=== PATIENT | male | born 1960 | race Caucasian/White ===

== ENCOUNTER 2024-04-10 13:30 | Outpatient (RCR) | payer MEDICARE, SELFPAY ==
[2024-04-03 13:06] VITALS: BP 189/80; PULSE 71; RESP 18; TEMP 36.5; BMI 46.0
--- NOTE | 2024-04-03 18:32 | HP.PCM_ITS ---
History of Present Illness Date of Service: 04/03/24 Chief Complaint: R matthews ulceration History of Wound: Mr. Alvin Gomez is a 63 y/o male who presents today for evaluation and management of R matthews ulcerations. He has had these ulcerations for a while. He reports that these ulcerations will heal and then re-open and this has been ongoing for a few years. They typically start as fluid-filled blisters and then evolve into these wounds. He does have bilateral lower extremity edema which he says has also been ongoing for years. He does not wear compression because he is not able to get the stockings on. His mobility is limited by hip osteoarthritis and his weight. His is type 2 diabetic and reports he is supposed to be on insulin but is not. He says he has 7 medications at home (not sure which ones) that he did pay for, including 2 inhalers; but he has other medications that he has not picked up due to cost including insulin. He has Medicare A & B but no prescription drug coverage. He says he has papers at home to fill out to either apply for Medicaid or other assistance for this, his PCP office has been helping with this. He does have a glucometer but he does not use it because he is having difficulty operating it. He also has hypertension but is not sure if he has BP medications, he thinks those may have been ones that were too expensive. His initial BP today was 189/80 this did improve to 157/80 on recheck. PFSH Home Medications ?Medication ?Instructions ?Recorded ?Last Taken ?Type albuterol sulfate 90 mcg/actuation 1 puff inhalation Q4H PRN PRN 04/03/24 Unknown History aerosol inhaler wheezing atorvastatin 80 mg tablet 80 mg PO DAILY 04/03/24 Unknown History fluticasone furoate 100 inhalation DAILY 04/03/24 Unknown History mcg-vilanterol 25 mcg/dose inhalation powder hydralazine 25 mg tablet 25 mg PO TID 04/03/24 Unknown History losartan 25 mg tablet 25 mg PO DAILY 04/03/24 Unknown History pantoprazole 40 mg tablet,delayed 40 mg PO DAILY 04/03/24 Unknown History release topiramate 50 mg tablet 50 mg PO BID 04/03/24 Unknown History Allergy/AdvReac Type Severity Reaction Status Date / Time No Known Allergies Allergy Verified 04/03/24 13:23 Vital Signs Vital Signs Vital Signs: 04/03/24 13:06 Temperature 97.7 F L Temperature Source Temporal Pulse Rate 71 Respiratory Rate 18 Blood Pressure 189/80 H Blood Pressure Mean 116 Blood Pressure Source Monitor Blood Pressure Position Sitting Blood Pressure Location Left Arm Oxygen Delivery Method Room Air Weight Weight: 330 lb Body Mass Index (BMI) 46.0 Physical Exam Const alert, oriented x3 and no apparent distress General Appearance: cooperative and comfortable HEENT normocephalic, hearing grossly normal bilaterally and external ears normal Eyes EOMs intact bilaterally General Eye: normal appearance of both eyes Neck General: normal visual inspection and trachea midline Resp normal respiratory effort Effort and Inspection: able to speak in complete sentences; Negative for labored, stridor or audible wheezes Cardio Rate: regular rate Rhythm: regular rhythm Extremity Extremity Narrative: Significant BLE edema: (04/03) R calf 52.6 cm, R ankle 29.7 cm (04/03) L calf 48.7 cm, L ankle 27.4 cm Skin Wounds: wounds noted Wound Narrative: R matthews ulcerations with fat layer exposed, moderate slough, pink well-bleeding base. No focal edema, erythema, warmth, excessive drainage, foul odor. Neuro oriented x3, CN's II-XII intact bilaterally, moves all extremities and no focal motor deficits Speech: speech normal Psych mental status grossly normal Appearance: grossly normal Attitude: calm and engaged Activity / Motor Behavior: appropriate eye contact Speech: normal speech Mood & Affect: euthymic mood Debridement Note Debridement Note Wound debrided: R matthews inferior Laterality: Right Type of Debridement: Excisional debridement Depth: Down to and including healthy tissue and in the subcutaneous layer Percentage of wound debrided: 100 Instrument Used: 3mm curette Tissue Removed: slough, devitalized tissue Severity: Fat Layer Exposed Amount of bleeding with debridement: Mild Bleeding Controlled with: Pressure Patient tolerated procedure: Patient tolerated procedure well Post-Debridement Measurements and Additional Note: Post-Debridement Measurements/Treatment - Nurse 1 - General Ulcer Assessment Start: 04/03/24 13:06 Freq: Status: Active Protocol: DALTON Activity Type Activity Date Activity User E-sign Co-sign Detail Recorded Client Recorded Date Recorded By Document 04/03/24 13:06 [facility] [email or web address] 04/03/24 13:21 [facility] 04/03/24 13:06 - Today's Visit Information Type of service Initial Visit Arrival Mode Ambulatory,Cane Transfer Assistance None Accompanied by son Patient Identification Verified (Name & Yes ) Patient Requires Transmission-Based No Precautions Height and Weight Height 5 ft 11 in Weight 330 lb Weight in Pounds 330.0 lbs Weight Measurement Method Estimated by Patient Body Mass Index (BMI) 46.0 BMI Classification Obese BSA - Jamil 2.61 Vital Signs Temperature (97.8 F-99.1 F) 97.7 F L Temperature Source Temporal Pulse Rate (60-100) 71 Pulse Location Monitor Respiratory Rate (12-18) 18 Respiratory rate source Observation Oxygen Delivery Method Room Air Blood Pressure (90/60-120/80) 189/80 H Blood Pressure Mean 116 Source Monitor Position Sitting Blood Pressure Location Left Arm History Since Last Visit- (Skip if this is Patient's initial visit) Left Footwear Regular Shoe Right Footwear Regular Shoe Pain Scale: 0-10 Numeric Is Patient Pain Free? Yes Lower Extremity Assessment/ Foot Assessment/ Toe Nail Assessment Right -Posterior Tibial Doppler Multiphasic -Dorsalis Pedis Doppler Multiphasic -Extremity Color Hyperpigmented, Hemosiderin -Hair Growth on Legs Yes -Hair Growth on Toes No -Temperature of Extremity Warm -Thick Yes -Discolored Yes -Improper Length & Hygeine Yes Left -Posterior Tibial Doppler Multiphasic -Dorsalis Pedis Doppler Multiphasic -Extremity Color Hyperpigmented, Hemosiderin -Hair Growth on Legs Yes -Hair Growth on Toes No -Temperature of Extremity Warm -Thick Yes -Discolored Yes -Improper Length & Hygeine Yes Communication Assessment 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 Able to Read Yes Able to Write Yes Communication Tools None Right Hearing Abillity Normal Left Hearing Abillity Normal Visual Assistive Devices Glasses Teaching Assessment Preferences Verbal,Written, Audio/Visual, Demonstration Barriers to Learning None Readiness To Learn Good Willingness to Engage in Self Management Med Activies Readiness to Engage in Self Management Med Activities Anxiety Level Calm Cooperation Cooperative Perception Coherent Interest in Health Problem Asks Questions Education Importance Acknowledges Need Does Patient Smoke tobacco or other No substances Is Patient Diabetic Yes Functional Assessment Recent Decline in Ability to Perform Denies Any Declines 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 Cultural/Episcopal Needs that may affect No Treatment Plan Teaching: Wound Center *Welcome to the Wound Center -Person Taught Patient,Family -Teaching Method Discussion -Response to teaching Verbalize understanding WC - Nurse 1 - General Ulcer Measurement Start: 04/03/24 13:06 Freq: Status: Active Protocol: Activity Type Activity Date Activity User E-sign Co-sign Detail Recorded Client Recorded Date Recorded By Document 04/03/24 13:06 [facility] [email or web address] 04/03/24 13:21 [facility] 04/03/24 13:06 Wound Center Nurse 1 #2- R MATTHEWS -Combined with other wound No -Current Size (cm) - Length 1.3 -Current Size (cm) - Width 1.3 -Current Size (cm) - Depth 0.2 -Total Square Cm 1.69 -Date of Last Picture (Recall this 04/03/24 field) -Photo Taken Yes -Epithelialization None Present -Tunneling No -Undermining/Tunneling No -Circular Undermining No -Exudate Amt Medium -Exudate Type Serosanguineous -Wound Margin Distinct, Outline Attached -Granulation Amt Large (67-100%) -Granulation Quality Red -Slough/Fibrin Yes -Necrosis Amt Small (1-33%) -Necrotic Tissue Type Adherent Slough -Texture (Sandy-wound Skin Appearance) Assessed, Scarring -Moisture (Sandy-wound Skin Appearance) Assessed -Color (Sandy-wound Skin Appearance) Assessed -Temperature (Sandy-wound Skin No Abnormality Appearance) (Pt Warm) -Tenderness on Palpation (Sandy-wound No Skin Appearance) -Ulcer Cleansing Rinsed/ Irrigated with Saline -Foul Odor after Cleansing No -Anesthetic Used 4% Lidocaine Solution #1- R MATTHEWS SUPERIOR -Combined with other wound No -Current Size (cm) - Length 0.4 -Current Size (cm) - Width 0.5 -Current Size (cm) - Depth 0.1 -Total Square Cm 0.20 -Date of Last Picture (Recall this 04/03/24 field) -Photo Taken Yes -Epithelialization None Present -Tunneling No -Undermining/Tunneling No -Circular Undermining No -Exudate Amt Medium -Exudate Type Serosanguineous -Wound Margin Distinct, Outline Attached -Granulation Amt Large (67-100%) -Granulation Quality Red -Slough/Fibrin Yes -Necrosis Amt Small (1-33%) -Necrotic Tissue Type Adherent Slough -Texture (Sandy-wound Skin Appearance) Assessed -Moisture (Sandy-wound Skin Appearance) Assessed -Color (Sandy-wound Skin Appearance) Assessed -Temperature (Sandy-wound Skin No Abnormality Appearance) (Pt Warm) -Tenderness on Palpation (Sandy-wound Yes Skin Appearance) -Ulcer Cleansing Soap and Water -Foul Odor after Cleansing No -Anesthetic Used 4% Lidocaine Solution Lower Limb Edema Present Yes Right Calf (cm) 52.6 Right Ankle (cm) 29.7 Left Calf (cm) 48.7 Left Ankle (cm) 27.4 WC - Nurse 2 - General Ulcer CM Notes Start: 04/03/24 13:06 Freq: Status: Active Protocol: Activity Type Activity Date Activity User E-sign Co-sign Detail Recorded Client Recorded Date Recorded By Document 04/03/24 13:43 [facility] 04/03/24 13:57 GM 04/03/24 13:43 Wound Center Nurse 2 #2- R MATTHEWS -Time 13:43 -Correct Patient Yes -Correct Side, Site, Position Yes -Correct Procedure Yes -Procedure Performed Yes -Type of Procedure Debridement -Clinical Debridement Subcutaneous -Tissue Removed Subcutaneous -Post Debridement (cm) - Length 1.6 -Post Debridement (cm) - Width 1.4 -Post Debridement (cm) - Depth 0.4 -Total Square (Post) (cm) 2.24 -Area of Debridement (cm) - Length 1.6 -Area of Debridement (cm) - Width 1.4 -Total Square (Area) (cm) 2.24 -Tunneling No -Undermining/Tunneling No -Circular Undermining No -Wound/Ulcer Outcome Not Healed -Ulcer Cleansing Rinsed/ Irrigated with Saline -Foul Odor after Cleansing No -Bioengineered Tissue No -Bleeding Controlled with Pressure -Treatment Response Procedure Tolerated Well -Debridement - Subq, 1st 20sq cm Yes #1- R MATTHEWS SUPERIOR -Time 13:44 -Correct Patient Yes -Correct Side, Site, Position Yes -Correct Procedure Yes -Procedure Performed Yes -Type of Procedure Debridement -Clinical Debridement Subcutaneous -Tissue Removed Subcutaneous -Post Debridement (cm) - Length 0.3 -Post Debridement (cm) - Width 0.5 -Post Debridement (cm) - Depth 0.1 -Total Square (Post) (cm) 0.15 -Area of Debridement (cm) - Length 0.3 -Area of Debridement (cm) - Width 0.5 -Total Square (Area) (cm) 0.15 -Tunneling No -Undermining/Tunneling No -Circular Undermining No -Wound/Ulcer Outcome Not Healed -Ulcer Cleansing Rinsed/ Irrigated with Saline -Foul Odor after Cleansing No -Bioengineered Tissue No -Bleeding Controlled with Pressure -Treatment Response Procedure Tolerated Well -Debridement - Subq, 1st 20sq cm No Pain Scale: 0-10 Numeric Is Patient Pain Free? Yes - Nurse 3 - General Ulcer D/C NN Start: 04/03/24 13:06 Freq: Status: Active Protocol: Activity Type Activity Date Activity User E-sign Co-sign Detail Recorded Client Recorded Date Recorded By Document 04/03/24 14:02 KW f 04/03/24 14:04 KW Edit Result 04/03/24 14:02 KW (1) f 04/03/24 14:05 KW (1) #1- R MATTHEWS SUPERIOR - Primary Dressing Applied => Optilok 8x12 - Optilok 8x12 => 1 04/03/24 14:02 Wound Care Center Nurse 3 #2- R MATTHEWS -Primary Dressing Applied Silvercel -Primary Dressing Covered/Secured with Dry Gauze -Silvercel 1 #1- R MATTHEWS SUPERIOR -Primary Dressing Applied Optilok 8x12 -Optilok 8x12 1 laura le -Multi-Layered Wrap Application Unna Boot - Bilateral ($) Pain Scale: 0-10 Numeric Is Patient Pain Free? Yes - Visit Discharge Discharge Condition Stable Ambulatory Status Ambulatory,Cane Transportation Private Auto Medication Reconcilliation completed & No provided to patient/care provider Clinical Summary of Care Provided Yes Additional Wound Wound debrided: R matthews superior Laterality: Right Type of Debridement: Excisional debridement Anesthesia Used: 5% Lidocaine Gel Depth: in the subcutaneous layer Percentage of wound debrided: 100 Instrument Used: 3mm curette Tissue Removed: slough, devitalized tissue Severity: Fat Layer Exposed Amount of bleeding with debridement: Mild Bleeding Controlled with: Pressure Patient tolerated procedure: Patient tolerated procedure well Charges/Coding Visit Charges Office Visits / Consults: [id number] OV L3 New 30min Procedures Integumentary [id number]: [id number] Mikayla subq tissue 20 sq cm/< Assessment/Plan Assessment/Plan (1) Ulcer of right matthews with fat layer exposed: CODE(S): L97.812 - Non-pressure chronic ulcer of other part of right lower leg with fat layer exposed PLAN: Skin ulcer of right pretibial region with fat layer exposed (2) Lymphedema: CODE(S): I89.0 - Lymphedema, not elsewhere classified PLAN: Plan For wound care, will apply Aquacel Silver to the wound beds and then apply Unna boots for compression. He was instructed to keep the Unna boots clean and dry. He is instructed to call for a nurse visit for dressing changes if these become soiled. He is also instructed to elevate his legs at all times of rest and participate in daily exercise such as walking and calf pumps as tolerated. We discussed the importance of good glycemic control in wound healing. I advise that he make sure he fills out the paperwork for financial assistance for his medications as access to insulin and other diabetic medications will be very important. I also advised that he make dietary changes to better control his sugars including increasing protein and decreasing carbohydrates/sugar/fatty foods. I ask that he bring his glucometer and supplies with him to his next ap pointment so we can try to help him to use this. I also discussed with him the risks of poorly controlled blood pressure including risk for stroke, heart attack, kidney injury, among others. He is a dvised to call his PCP and advise them of the elevated blood pressures, see if he has blood pressure medications at home and make sure he is taking them. I also asked that he bring all of his medications in with him next week so we can help him sort these out. I advise he get a home BP cuff if possible to monitor his pressure at home. We reviewed red flag signs/symptoms which should take him to the ER including CP, SOB, GLORIA, vision changes, abdominal/flank/back pain, and any other concerning signs/symptoms. He will return to see me in 1 week, sooner as needed.
--- NOTE | 2024-04-04 11:38 | WC ---
PHOTO 04/03/24 SUPERIOR RIGHT SALAMANCA/INFERIOR RIGHT SALAMANCA
--- NOTE | 2024-04-04 11:39 | WC ---
PHOTO 04/03/24 RIGHT SALAMANCA
[2024-04-10 13:35] VITALS: BP 188/76; PULSE 61; RESP 18; TEMP 36.1; BMI 46.0
--- NOTE | 2024-04-10 15:08 | PCM.WC.PN ---
History of Present Illness Date of Service: 04/10/24 Chief Complaint: R matthews ulceration History of Wound: Mr. Alvin Gomez is a 63 y/o male who presents today for evaluation and management of R matthews ulcerations. He has had these ulcerations for a while. He reports that these ulcerations will heal and then re-open and this has been ongoing for a few years. They typically start as fluid-filled blisters and then evolve into these wounds. He does have bilateral lower extremity edema which he says has also been ongoing for years. He does not wear compression because he is not able to get the stockings on. His mobility is limited by hip osteoarthritis and his weight. His is type 2 diabetic and reports he is supposed to be on insulin but is not. He says he has 7 medications at home (not sure which ones) that he did pay for, including 2 inhalers; but he has other medications that he has not picked up due to cost including insulin. He has Medicare A & B but no prescription drug coverage. He says he has papers at home to fill out to either apply for Medicaid or other assistance for this, his PCP office has been helping with this. He does have a glucometer but he does not use it because he is having difficulty operating it. He also has hypertension but is not sure if he has BP medications, he thinks those may have been ones that were too expensive. Subjective Subjective He is hypertensive again today. He is again encouraged to monitor his BP at home, ensure he is takes his BP medication today, and to inform his PCP of elevated BP. He is also advised to proceed to the ER if he develops any CP, SOB, vision changes, GLORIA, other concerning symptoms, or if his BP does not improve to systolic <170 on recheck. He has no complaints today. He states he tolerated the Unna boots well. He did bring his glucometer with him today so that we could see what error message he was getting and try to troubleshoot. Objective Data Objective Data Vital Signs: Vital Signs Temp Pulse Resp BP O2 Del Method 96.9 F L 61 18 188/76 H Room Air 04/10/24 13:35 04/10/24 13:35 04/10/24 13:35 04/10/24 13:35 04/10/24 13:35 Oxygen Delivery Method Room Air Weight: 330 lb Body Mass Index (BMI) 46.0 Charges/Coding Procedures Integumentary 111xxx-113xx: [id number] Mikayla subq tissue 20 sq cm/< Physical Exam Const alert, oriented x3 and no apparent distress General Appearance: cooperative and comfortable HEENT normocephalic, hearing grossly normal bilaterally and external ears normal Eyes EOMs intact bilaterally General Eye: normal appearance of both eyes Neck General: normal visual inspection and trachea midline Resp normal respiratory effort Effort and Inspection: able to speak in complete sentences; Negative for labored, stridor or audible wheezes Cardio Rate: regular rate Rhythm: regular rhythm Extremity Extremity Narrative: Significant BLE edema: (04/03) R calf 52.6 cm, R ankle 29.7 cm --> R calf 51.2 cm, R ankle 28 cm (04/03) L calf 48.7 cm, L ankle 27.4 cm --> L calf 45.5 cm, L ankle 26 cm Skin Wounds: wounds noted Wound Narrative: R superior matthews ulceration is fully epithelialized today. R inferior matthews ulceration with fat layer exposed, moderate slough, pink well-bleeding base, decreased in size this week. No focal edema, erythema, warmth, excessive drainage, foul odor. Neuro oriented x3, CN's II-XII intact bilaterally, moves all extremities and no focal motor deficits Speech: speech normal Psych mental status grossly normal Appearance: grossly normal Attitude: calm and engaged Activity / Motor Behavior: appropriate eye contact Speech: normal speech Mood & Affect: euthymic mood Debridement Note Debridement Note Wound debrided: R matthews inferior Laterality: Right Type of Debridement: Excisional debridement Depth: Down to and including healthy tissue and in the subcutaneous layer Percentage of wound debrided: 100 Instrument Used: 3mm curette Tissue Removed: slough, devitalized tissue Severity: Fat Layer Exposed Amount of bleeding with debridement: Mild Bleeding Controlled with: Pressure Patient tolerated procedure: Patient tolerated procedure well Post-Debridement Measurements and Additional Note: Post-Debridement Measurements/Treatment ALISSON - Nurse 1 - General Ulcer Assessment Start: 04/03/24 13:06 Freq: Status: Active Protocol: DALTON Activity Type Activity Date Activity User E-sign Co-sign Detail Recorded Client Recorded Date Recorded By Document 04/03/24 13:06 [facility] 10.10.25.7 04/03/24 13:21 BMF Document 04/10/24 13:35 KW l 04/10/24 13:50 KW 04/03/24 04/10/24 13:06 13:35 WC - Today's Visit Information Type of service Initial Visit Follow-up Visit (Physician/MISSIONARY COORDINATOR ) Arrival Mode Ambulatory,Cane Ambulatory Transfer Assistance None Accompanied by son SON Patient Identification Verified (Name & Yes Yes ) Patient Requires Transmission-Based No Precautions Height and Weight Height 5 ft 11 in Weight 330 lb Weight in Pounds 330.0 lbs Weight Measurement Method Estimated by Patient Body Mass Index (BMI) 46.0 46.0 BMI Classification Obese Obese BSA - Jamil 2.61 Vital Signs Temperature (97.8 F-99.1 F) 97.7 F L 96.9 F L Temperature Source Temporal Temporal Pulse Rate (60-100) 71 61 Pulse Location Monitor Monitor Respiratory Rate (12-18) 18 18 Respiratory rate source Observation Observation Oxygen Delivery Method Room Air Room Air Blood Pressure (90/60-120/80) 189/80 H 188/76 H Blood Pressure Mean (mm Hg) 116 113 Source Monitor Monitor Position Sitting Sitting Blood Pressure Location Left Arm Left Arm History Since Last Visit- (Skip if this is Patient's initial visit) Have you changed medications since your No last visit? Any new allergies or adverse reactions No Had a fall/change in ADL's that may No increase risk of falls Signs or symptoms of abuse and/or No neglect since last visit Have you been in the hospital since your No last visit? Has dressing in place as prescribed Yes Has compression in place as prescribed Yes Has offloadiing in place as prescribed N/A Experienced any changes in pain level or No management Left Footwear Regular Shoe Regular Shoe Right Footwear Regular Shoe Regular Shoe Pain Scale: 0-10 Numeric Is Patient Pain Free? Yes Yes Lower Extremity Assessment/ Foot Assessment/ Toe Nail Assessment Right -Posterior Tibial Doppler Multiphasic -Dorsalis Pedis Doppler Multiphasic -Extremity Color Hyperpigmented, Hemosiderin -Hair Growth on Legs Yes -Hair Growth on Toes No -Temperature of Extremity Warm -Thick Yes -Discolored Yes -Improper Length & Hygeine Yes Left -Posterior Tibial Doppler Multiphasic -Dorsalis Pedis Doppler Multiphasic -Extremity Color Hyperpigmented, Hemosiderin -Hair Growth on Legs Yes -Hair Growth on Toes No -Temperature of Extremity Warm -Thick Yes -Discolored Yes -Improper Length & Hygeine Yes Communication Assessment Preferred language Monegasque Roll Cutter Required No Able to Read Yes Able to Write Yes Communication Tools None Right Hearing Abillity Normal Left Hearing Abillity Normal Visual Assistive Devices Glasses Teaching Assessment Preferences Verbal,Written, Audio/Visual, Demonstration Barriers to Learning None Readiness To Learn Good Willingness to Engage in Self Management Med Activies Readiness to Engage in Self Management Med Activities Anxiety Level Calm Cooperation Cooperative Perception Coherent Interest in Health Problem Asks Questions Education Importance Acknowledges Need Does Patient Smoke tobacco or other No substances Is Patient Diabetic Yes Functional Assessment Recent Decline in Ability to Perform Denies Any Declines 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 Cultural/Advent Needs that may affect No Treatment Plan Teaching: Wound Center *Welcome to the Wound Center -Person Taught Patient,Family -Teaching Method Discussion -Response to teaching Verbalize understanding WC - Nurse 1 - General Ulcer Measurement Start: 04/03/24 13:06 Freq: Status: Active Protocol: Activity Type Activity Date Activity User E-sign Co-sign Detail Recorded Client Recorded Date Recorded By Document 04/03/24 13:06 [facility] 10.10.25.7 04/03/24 13:21 [facility] Document 04/10/24 13:35 KW l 04/10/24 13:50 KW 04/03/24 04/10/24 13:06 13:35 Wound Center Nurse 1 #2- R MATTHEWS -Combined with other wound No -Current Size (cm) - Length 1.3 1.7 -Current Size (cm) - Width 1.3 1.4 -Current Size (cm) - Depth 0.2 0.2 -Total Square Cm 1.69 2.38 -Date of Last Picture (Recall this 04/03/24 04/10/24 field) -Photo Taken Yes -Epithelialization None Present Small 1-33% -Tunneling No -Undermining/Tunneling No -Circular Undermining No -Exudate Amt Medium Small -Exudate Type Serosanguineous Serosanguineous -Wound Margin Distinct, Distinct, Outline Outline Attached Attached -Granulation Amt Large (67-100%) Large (67-100%) -Granulation Quality Red Red -Slough/Fibrin Yes -Necrosis Amt Small (1-33%) Small (1-33%) -Necrotic Tissue Type Adherent Slough Adherent Slough -Texture (Sandy-wound Skin Appearance) Assessed, Assessed Scarring -Moisture (Sandy-wound Skin Appearance) Assessed Assessed -Color (Sandy-wound Skin Appearance) Assessed Assessed, Erythema -Temperature (Sandy-wound Skin No Abnormality No Abnormality Appearance) (Pt Warm) (Pt Warm) -Tenderness on Palpation (Sandy-wound No No Skin Appearance) -Ulcer Cleansing Rinsed/ Soap and Water Irrigated with Saline -Foul Odor after Cleansing No -Anesthetic Used 4% Lidocaine 5% Lidocaine Solution Gel #1- R MATTHEWS SUPERIOR -Combined with other wound No -Current Size (cm) - Length 0.4 0.1 -Current Size (cm) - Width 0.5 0.1 -Current Size (cm) - Depth 0.1 0.1 -Total Square Cm 0.20 0.01 -Date of Last Picture (Recall this 04/03/24 04/10/24 field) -Photo Taken Yes -Epithelialization None Present Large 67-100% -Tunneling No -Undermining/Tunneling No -Circular Undermining No -Exudate Amt Medium None Present -Exudate Type Serosanguineous -Wound Margin Distinct, Outline Attached -Granulation Amt Large (67-100%) -Granulation Quality Red -Slough/Fibrin Yes -Necrosis Amt Small (1-33%) -Necrotic Tissue Type Adherent Slough -Texture (Sandy-wound Skin Appearance) Assessed Assessed -Moisture (Sandy-wound Skin Appearance) Assessed Assessed -Color (Sandy-wound Skin Appearance) Assessed Assessed -Temperature (Sandy-wound Skin No Abnormality Appearance) (Pt Warm) -Tenderness on Palpation (Sandy-wound Yes No Skin Appearance) -Ulcer Cleansing Soap and Water Soap and Water -Foul Odor after Cleansing No -Anesthetic Used 4% Lidocaine Solution Lower Limb Edema Present Yes Right Calf (cm) 52.6 51.2 Right Ankle (cm) 29.7 28 Left Calf (cm) 48.7 45.5 Left Ankle (cm) 27.4 26 WC - Nurse 2 - General Ulcer CM Notes Start: 04/03/24 13:06 Freq: Status: Active Protocol: Activity Type Activity Date Activity User E-sign Co-sign Detail Recorded Client Recorded Date Recorded By Document 04/03/24 13:43 GM wc 04/03/24 13:57 GM Document 04/10/24 13:59 [facility] 10.10.25.7 04/10/24 14:03 BMF 04/03/24 04/10/24 13:43 13:59 Wound Center Nurse 2 #2- R MATTHEWS -Time 13:43 -Correct Patient Yes -Correct Side, Site, Position Yes -Correct Procedure Yes -Procedure Performed Yes -Type of Procedure Debridement -Clinical Debridement Subcutaneous -Tissue Removed Subcutaneous -Post Debridement (cm) - Length 1.6 0 -Post Debridement (cm) - Width 1.4 0 -Post Debridement (cm) - Depth 0.4 0 -Total Square (Post) (cm) 2.24 0 -Area of Debridement (cm) - Length 1.6 0 -Area of Debridement (cm) - Width 1.4 0 -Total Square (Area) (cm) 2.24 0 -Tunneling No -Undermining/Tunneling No -Circular Undermining No -Wound/Ulcer Outcome Not Healed Healed- Epithelialized -Ulcer Cleansing Rinsed/ Irrigated with Saline -Foul Odor after Cleansing No -Bioengineered Tissue No -Bleeding Controlled with Pressure NA -Treatment Response Procedure Tolerated Well -Debridement - Subq, 1st 20sq cm Yes #1- R MATTHEWS ANTIOCH -Time 13:44 14:01 -Correct Patient Yes Yes -Correct Side, Site, Position Yes Yes -Correct Procedure Yes Yes -Procedure Performed Yes Yes -Type of Procedure Debridement Debridement -Clinical Debridement Subcutaneous Subcutaneous -Tissue Removed Subcutaneous Subcutaneous -Post Debridement (cm) - Length 0.3 1.4 -Post Debridement (cm) - Width 0.5 1.1 -Post Debridement (cm) - Depth 0.1 0.2 -Total Square (Post) (cm) 0.15 1.54 -Area of Debridement (cm) - Length 0.3 1.4 -Area of Debridement (cm) - Width 0.5 1.1 -Total Square (Area) (cm) 0.15 1.54 -Tunneling No No -Undermining/Tunneling No No -Circular Undermining No -Wound/Ulcer Outcome Not Healed Not Healed -Ulcer Cleansing Rinsed/ Rinsed/ Irrigated with Irrigated with Saline Saline -Foul Odor after Cleansing No No -Bioengineered Tissue No No -Bleeding Controlled with Pressure Pressure -Treatment Response Procedure Procedure Tolerated Well Tolerated Well -Debridement - Subq, 1st 20sq cm No Yes Pain Scale: 0-10 Numeric Is Patient Pain Free? Yes Yes WC - Nurse 3 - General Ulcer D/C NN Start: 04/03/24 13:06 Freq: Status: Active Protocol: Activity Type Activity Date Activity User E-sign Co-sign Detail Recorded Client Recorded Date Recorded By Document 04/03/24 14:02 KW f 04/03/24 14:04 KW Edit Result 04/03/24 14:02 KW (1) f 04/03/24 14:05 KW Document 04/10/24 14:16 DL 10.10.25.7 04/10/24 14:18 DL (1) #1- R MATTHEWS SUPERIOR - Primary Dressing Applied => Optilok 8x12 - Optilok 8x12 => 1 04/03/24 04/10/24 14:02 14:16 Wound Care Center Nurse 3 #2- R MATTHEWS -Primary Dressing Applied Silvercel -Primary Dressing Covered/Secured with Dry Gauze -Silvercel 1 #1- R MATTHEWS SUPERIOR -Ulcer Cleansing Rinsed/ Irrigated with Saline -Foul Odor after Cleansing No -Primary Dressing Applied Optilok 8x12 Optilok 6.5x10, Silvercel -Optilok 6.5x10 1 -Optilok 8x12 1 -Silvercel 1 laura le -Multi-Layered Wrap Application Unna Boot - Unna Boot - Bilateral ($) Bilateral ($) Treatment Response Procedure Tolerated Well Pain Scale: 0-10 Numeric Is Patient Pain Free? Yes Yes WC - Visit Discharge Discharge Condition Stable Stable Ambulatory Status Ambulatory,Cane Ambulatory Transportation Private Auto Private Auto Medication Reconcilliation completed & No provided to patient/care provider Clinical Summary of Care Provided Yes Assessment/Plan Assessment/Plan (1) Ulcer of right matthews with fat layer exposed: CODE(S): L97.812 - Non-pressure chronic ulcer of other part of right lower leg with fat layer exposed PLAN: Skin ulcer of right pretibial region with fat layer exposed (2) Lymphedema: CODE(S): I89.0 - Lymphedema, not elsewhere classified PLAN: Plan For wound care, will continue to apply Aquacel Silver to the wound bed and then apply Unna boots bilaterally for compression. He was instructed to keep the Unna boots clean and dry. He is instructed to call for a nurse visit for dressing changes if these become soiled. He is also instructed to elevate his legs at all times of rest and participate in daily exercise such as walking and calf pumps as tolerated. We discussed the importance of good glycemic control in wound healing. He is again encouraged to make sure he fills out the paperwork for financial assistance for his medications as access to insulin and other diabetic medications will be very important. I also advised that he make dietary changes to better control his sugars including increasing protein and decreasing carbohydrates/sugar/fatty foods. He did bring his glucometer in from home today. We were able to use the glucometer without issue, no error codes. We showed him how to use it and advised that if he ran into an error code to take a picture of it to show us or his PCP. I advise he begin to check his blood sugars daily as per his PCP's instructions. I also discussed with him the risks of poorly controlled blood pressure including risk for stroke, heart attack, kidney injury, among others. He is again advised to call his PCP and advise them of the elevated blood pressures, see if he has blood pressure medications at home and make sure he is taking them. I also asked that he bring all of his medications in with him this week so we can help him sort these out but he did not bring these. He is again strongly encouraged to get a home BP cuff to monitor his pressure at home. We reviewed red flag signs/symptoms which should take him to the ER including CP, SOB, GLORIA, vision changes, abdominal/flank/back pain, and any other concerning signs/symptoms. He will return to see me in 1 week, sooner as needed.
--- NOTE | 2024-04-17 11:41 | WC ---
PHOTO 04/10/24 RIGHT SALAMANCA
--- NOTE | 2024-04-17 11:42 | WC ---
PHOTO RIGHT SALAMANCA SUPERIOR 04/10/24
== END 2024-04-16 23:59 | disposition home or self-care (01) ==
LOC: WC 13:30
PROVIDERS: PCP Nurse Practitioner Primary Care; Referring Provider Nurse Practitioner Primary Care; Visit Provider Physician Assistant
DX: E11.622 Type 2 diabetes mellitus with other skin ulcer (principal); L97.812 Non-pressure chronic ulcer of other part of right lower leg with fat layer exposed; I10 Essential (primary) hypertension; M16.10 Unilateral primary osteoarthritis, unspecified hip; R60.0 Localized edema; I89.0 Lymphedema, not elsewhere classified
CPT/HCPCS: 11042; 29580; 99203; 99213; G0463

== ENCOUNTER 2024-04-24 14:30 | Outpatient (RCR) | payer MEDICARE, SELFPAY ==
[2024-04-17 00:52] VITALS: BP 188/76; PULSE 61; RESP 18; TEMP 36.1; BMI 46.0
[2024-04-17 13:35] VITALS: BP 187/86; PULSE 77; RESP 18; TEMP 36.1; BMI 46.0
--- NOTE | 2024-04-17 15:03 | PN.PCM_ITS ---
History of Present Illness Date of Service: 04/17/24 Chief Complaint: R matthews ulceration History of Wound: Mr. Alvin Gomez is a 63 y/o male who presents today for evaluation and management of R matthews ulcerations. He has had these ulcerations for a while. He reports that these ulcerations will heal and then re-open and this has been ongoing for a few years. They typically start as fluid-filled blisters and then evolve into these wounds. He does have bilateral lower extremity edema which he says has also been ongoing for years. He does not wear compression because he is not able to get the stockings on. His mobility is limited by hip osteoarthritis and his weight. His is type 2 diabetic and reports he is supposed to be on insulin but is not. He says he has 7 medications at home (not sure which ones) that he did pay for, including 2 inhalers; but he has other medications that he has not picked up due to cost including insulin. He has Medicare A & B but no prescription drug coverage. He says he has papers at home to fill out to either apply for Medicaid or other assistance for this, his PCP office has been helping with this. He does have a glucometer but he does not use it because he is having difficulty operating it. He also has hypertension but is not sure if he has BP medications, he thinks those may have been ones that were too expensive. Subjective Subjective Alvin returns today for follow-up of his right lower extremity wound. He reports he has been doing well over the last week. He does find that the Unna boots become very itchy around midweek but otherwise he is tolerating them okay. His blood pressure remains elevated. We talked about this at each visit and he has been strongly advised to follow-up with his primary care and advised some of his difficulties obtaining the prescribed medications. We have also discussed red flag signs and symptoms which should lead him to present to the emergency room. He is again urged to obtain a home blood pressure cuff if at all possible as he can monitor this at home. He does see his PCP next week At last visit we did also review how to use his glucometer. He reports that he since has not been able to use it is still having difficulties. He is advised that he can bring it back to us and also advised that he should again take this to his PCP at his upcoming appointment and see if they can provide further teaching as well. Objective Data Objective Data Vital Signs: Vital Signs Temp Pulse Resp BP O2 Del Method 96.9 F L 77 18 187/86 H Room Air 04/17/24 13:35 04/17/24 13:35 04/17/24 13:35 04/17/24 13:35 04/17/24 13:35 Oxygen Delivery Method Room Air Weight: 330 lb Body Mass Index (BMI) 46.0 Charges/Coding Procedures Integumentary [id number]: [id number] Mikayla subq tissue 20 sq cm/< Physical Exam Const alert, oriented x3 and no apparent distress General Appearance: cooperative and comfortable HEENT normocephalic, hearing grossly normal bilaterally and external ears normal Eyes EOMs intact bilaterally General Eye: normal appearance of both eyes Neck General: normal visual inspection and trachea midline Resp normal respiratory effort Effort and Inspection: able to speak in complete sentences; Negative for labored, stridor or audible wheezes Cardio Rate: regular rate Rhythm: regular rhythm Extremity Extremity Narrative: Significant BLE edema: (04/03) R calf 52.6 cm, R ankle 29.7 cm --> R calf 51.2 cm, R ankle 28 cm (04/03) L calf 48.7 cm, L ankle 27.4 cm --> L calf 45.5 cm, L ankle 26 cm Skin Wounds: wounds noted Wound Narrative: R superior matthews ulceration remains healed. R inferior matthews ulceration with fat layer exposed, moderate slough, pink well-bleeding base, decreased in size this week. No focal edema, erythema, warmth, excessive drainage, foul odor. Neuro oriented x3, CN's II-XII intact bilaterally, moves all extremities and no focal motor deficits Speech: speech normal Psych mental status grossly normal Appearance: grossly normal Attitude: calm and engaged Activity / Motor Behavior: appropriate eye contact Speech: normal speech Mood & Affect: euthymic mood Debridement Note Debridement Note Wound debrided: R matthews inferior Laterality: Right Type of Debridement: Excisional debridement Depth: Down to and including healthy tissue and in the subcutaneous layer Percentage of wound debrided: 100 Instrument Used: 3mm curette Tissue Removed: slough, devitalized tissue Severity: Fat Layer Exposed Amount of bleeding with debridement: Mild Bleeding Controlled with: Pressure Patient tolerated procedure: Patient tolerated procedure well Post-Debridement Measurements and Additional Note: Post-Debridement Measurements/Treatment WC - Nurse 1 - General Ulcer Assessment Start: 04/17/24 13:32 Freq: Status: Active Protocol: DALTON Activity Type Activity Date Activity User E-sign Co-sign Detail Recorded Client Recorded Date Recorded By Document 04/17/24 13:35 KW [facility] 04/17/24 13:47 04/17/24 13:35 - Today's Visit Information Type of service Follow-up Visit (Physician/TECHNOLOGY PROFESSIONAL ) Arrival Mode Ambulatory Patient Identification Verified (Name & Yes ) Height and Weight Body Mass Index (BMI) 46.0 BMI Classification Obese Vital Signs Temperature (97.8 F-99.1 F) 96.9 F L Temperature Source Temporal Pulse Rate (60-100) 77 Pulse Location Monitor Respiratory Rate (12-18) 18 Respiratory rate source Observation Oxygen Delivery Method Room Air Blood Pressure (90/60-120/80) 187/86 H Blood Pressure Mean (mm Hg) 119 Source Monitor Position Sitting Blood Pressure Location Left Arm History Since Last Visit- (Skip if this is Patient's initial visit) Have you changed medications since your No last visit? Any new allergies or adverse reactions No Had a fall/change in ADL's that may No increase risk of falls Signs or symptoms of abuse and/or No neglect since last visit Have you been in the hospital since your No last visit? Has dressing in place as prescribed Yes Has compression in place as prescribed Yes Has offloadiing in place as prescribed N/A Experienced any changes in pain level or No management Left Footwear Regular Shoe Right Footwear Regular Shoe Pain Scale: 0-10 Numeric Is Patient Pain Free? Yes - Nurse 1 - General Ulcer Measurement Start: 04/17/24 13:32 Freq: Status: Active Protocol: Activity Type Activity Date Activity User E-sign Co-sign Detail Recorded Client Recorded Date Recorded By Document 04/17/24 13:35 KW [facility] 04/17/24 13:47 04/17/24 13:35 Wound Center Nurse 1 #1- R MATTHEWS SUPERIOR -Current Size (cm) - Length 1 -Current Size (cm) - Width 0.6 -Current Size (cm) - Depth 0.1 -Total Square Cm 0.6 -Date of Last Picture (Recall this 04/17/24 field) -Exudate Amt Small -Exudate Type Serosanguineous -Wound Margin Distinct, Outline Attached -Granulation Amt Large (67-100%) -Granulation Quality Red -Texture (Sandy-wound Skin Appearance) Assessed -Moisture (Sandy-wound Skin Appearance) Assessed -Color (Sandy-wound Skin Appearance) Assessed, Erythema -Temperature (Sandy-wound Skin No Abnormality Appearance) (Pt Warm) -Tenderness on Palpation (Sandy-wound No Skin Appearance) -Ulcer Cleansing Soap and Water -Foul Odor after Cleansing No -Anesthetic Used 5% Lidocaine Gel Right Calf (cm) 48.6 Right Ankle (cm) 29 Left Calf (cm) 45 Left Ankle (cm) 26 WC - Nurse 2 - General Ulcer CM Notes Start: 04/17/24 13:32 Freq: Status: Active Protocol: Activity Type Activity Date Activity User E-sign Co-sign Detail Recorded Client Recorded Date Recorded By Document 04/17/24 14:32 [facility] [id number] 04/17/24 14:35 [facility] 04/17/24 14:32 Wound Center Nurse 2 #1- R MATTHEWS SUPERIOR -Time 14:32 -Correct Patient Yes -Correct Side, Site, Position Yes -Correct Procedure Yes -Procedure Performed Yes -Type of Procedure Debridement -Clinical Debridement Subcutaneous -Tissue Removed Subcutaneous -Post Debridement (cm) - Length 0.4 -Post Debridement (cm) - Width 0.3 -Post Debridement (cm) - Depth 0.1 -Total Square (Post) (cm) 0.12 -Area of Debridement (cm) - Length 0.4 -Area of Debridement (cm) - Width 0.3 -Total Square (Area) (cm) 0.12 -Tunneling No -Undermining/Tunneling No -Circular Undermining No -Wound/Ulcer Outcome Not Healed -Ulcer Cleansing Rinsed/ Irrigated with Saline -Foul Odor after Cleansing No -Bioengineered Tissue No -Bleeding Controlled with Pressure -Treatment Response Procedure Tolerated Well -Debridement - Subq, 1st 20sq cm Yes Pain Scale: 0-10 Numeric Is Patient Pain Free? Yes - Nurse 3 - General Ulcer D/C NN Start: 04/17/24 13:32 Freq: Status: Active Protocol: Activity Type Activity Date Activity User E-sign Co-sign Detail Recorded Client Recorded Date Recorded By Document 04/17/24 14:51 04/17/24 14:52 CP 08/01/24 14:51 Wound Care Center Nurse 3 #1- R MATTHEWS SUPERIOR -Ulcer Cleansing Rinsed/ Irrigated with Saline -Primary Dressing Applied Silvercel -Primary Dressing Covered/Secured with Dry Gauze & Roll Gauze -Silvercel 1 laura le -Lotion applied to leg before Yes compression wrap -Multi-Layered Wrap Application Multi-Layer Comp - Bilat ($ ) Treatment Response Procedure Tolerated Well Pain Scale: 0-10 Numeric Is Patient Pain Free? Yes WC - Visit Discharge Discharge Condition Stable Ambulatory Status Ambulatory Transportation Private Auto Clinical Summary of Care Provided Yes Assessment/Plan Assessment/Plan (1) Ulcer of right matthews with fat layer exposed: CODE(S): L97.812 - Non-pressure chronic ulcer of other part of right lower leg with fat layer exposed PLAN: Skin ulcer of right pretibial region with fat layer exposed (2) Lymphedema: CODE(S): I89.0 - Lymphedema, not elsewhere classified PLAN: Plan For wound care, will continue to apply Aquacel Silver to the wound bed. Will apply 3M wraps for compression this week instead and see if these are more comfortable for him. He was instructed to keep the wraps clean and dry. He is instructed to call for a nurse visit for dressing changes if these become soiled. He is also instructed to elevate his legs at all times of rest and participate in daily exercise such as walking and calf pumps as tolerated. We discussed the importance of good glycemic control in wound healing. He is again encouraged to make sure he fills out the paperwork for financial assistance for his medications as access to insulin and other diabetic medications will be very important. I also advised that he make dietary changes to better control his sugars including increasing protein and decreasing carbohydrates/sugar/fatty foods. I also discussed with him the risks of poorly controlled blood pressure including risk for stroke, heart attack, kidney injury, among others. He is again advised to call his PCP and advise them of the elevated blood pressures, see if he has blood pressure medications at home and make sure he is taking them. I also asked that he bring all of his medications in with him this week so we can help him sort these out but he did not bring these. He is again strongly encouraged to get a home BP cuff to monitor his pressure at home. We reviewed red flag signs/symptoms which should take him to the ER including CP, SOB, GLORIA, vision changes, abdominal/flank/back pain, and any other concerning signs/symptoms. He will return to see me in 1 week, sooner as needed.
--- NOTE | 2024-04-18 09:55 | WC ---
PHOTO RIGHT LE 04/17/24
[2024-04-24 13:39] VITALS: BP 150/84; PULSE 78; RESP 18; TEMP 35.5; BMI 46.0
--- NOTE | 2024-04-24 16:05 | PCM.WC.PN ---
History of Present Illness Date of Service: 04/24/24 Chief Complaint: R matthews ulceration History of Wound: Mr. Alvin Gomez is a 63 y/o male who presents today for evaluation and management of R matthews ulcerations. He has had these ulcerations for a while. He reports that these ulcerations will heal and then re-open and this has been ongoing for a few years. They typically start as fluid-filled blisters and then evolve into these wounds. He does have bilateral lower extremity edema which he says has also been ongoing for years. He does not wear compression because he is not able to get the stockings on. His mobility is limited by hip osteoarthritis and his weight. His is type 2 diabetic and reports he is supposed to be on insulin but is not. He says he has 7 medications at home (not sure which ones) that he did pay for, including 2 inhalers; but he has other medications that he has not picked up due to cost including insulin. He has Medicare A & B but no prescription drug coverage. He says he has papers at home to fill out to either apply for Medicaid or other assistance for this, his PCP office has been helping with this. He does have a glucometer but he does not use it because he is having difficulty operating it. He also has hypertension but is not sure if he has BP medications, he thinks those may have been ones that were too expensive. Subjective Subjective Alvin returns today for follow-up of his right lower extremity wound. He reports he did receive Circaids but forgot to bring them with him today for use to show him how to use them. Objective Data Objective Data Vital Signs: Vital Signs Temp Pulse Resp BP O2 Del Method 95.9 F L 78 18 150/84 H Room Air 04/24/24 13:39 04/24/24 13:39 04/24/24 13:39 04/24/24 13:39 04/24/24 13:39 Oxygen Delivery Method Room Air Weight: 330 lb Body Mass Index (BMI) 46.0 Charges/Coding Visit Charges Office Visits / Consults: 02232 OV L3 Est 20min Physical Exam Const alert, oriented x3 and no apparent distress General Appearance: cooperative and comfortable HEENT normocephalic, hearing grossly normal bilaterally and external ears normal Eyes EOMs intact bilaterally General Eye: normal appearance of both eyes Neck General: normal visual inspection and trachea midline Resp normal respiratory effort Effort and Inspection: able to speak in complete sentences; Negative for labored, stridor or audible wheezes Cardio Rate: regular rate Rhythm: regular rhythm Extremity Extremity Narrative: Significant BLE edema improved with compression Skin Wounds: wounds noted Wound Narrative: R superior matthews ulceration remains healed. R inferior matthews ulceration is epithelialized this week. Neuro oriented x3, CN's II-XII intact bilaterally, moves all extremities and no focal motor deficits Speech: speech normal Psych mental status grossly normal Appearance: grossly normal Attitude: calm and engaged Activity / Motor Behavior: appropriate eye contact Speech: normal speech Mood & Affect: euthymic mood Debridement Note Debridement Note No debridement was completed: No debridement was completed today Post-Debridement Measurements and Additional Note: Post-Debridement Measurements/Treatment - Nurse 1 - General Ulcer Assessment Start: 04/17/24 13:32 Freq: Status: Active Protocol: [email or web address] Activity Type Activity Date Activity User E-sign Co-sign Detail Recorded Client Recorded Date Recorded By Document 04/17/24 13:35 KW dhf 04/17/24 13:47 KW Document 04/24/24 13:39 KW xfh 04/24/24 13:47 KW 04/17/24 04/24/24 13:35 13:39 - Today's Visit Information Type of service Follow-up Visit Follow-up Visit (Physician/CHILDREN'S LIBRARIAN (Physician/CHILDREN'S LIBRARIAN ) ) Arrival Mode Ambulatory Ambulatory Patient Identification Verified (Name & Yes Yes ) Height and Weight Body Mass Index (BMI) 46.0 46.0 BMI Classification Obese Obese Vital Signs Temperature (97.8 F-99.1 F) 96.9 F L 95.9 F L Temperature Source Temporal Temporal Pulse Rate (60-100) 77 78 Pulse Location Monitor Monitor Respiratory Rate (12-18) 18 18 Respiratory rate source Observation Observation Oxygen Delivery Method Room Air Room Air Blood Pressure (90/60-120/80) 187/86 H 150/84 H Blood Pressure Mean (mm Hg) 119 106 Source Monitor Monitor Position Sitting Semi-Fowlers Blood Pressure Location Left Arm Left Forearm History Since Last Visit- (Skip if this is Patient's initial visit) Have you changed medications since your No No last visit? Any new allergies or adverse reactions No No Had a fall/change in ADL's that may No No increase risk of falls Signs or symptoms of abuse and/or No No neglect since last visit Have you been in the hospital since your No No last visit? Has dressing in place as prescribed Yes Yes Has compression in place as prescribed Yes Yes Has offloadiing in place as prescribed N/A N/A Experienced any changes in pain level or No No management Left Footwear Regular Shoe Regular Shoe Right Footwear Regular Shoe Regular Shoe Pain Scale: 0-10 Numeric Is Patient Pain Free? Yes Yes WC - Nurse 1 - General Ulcer Measurement Start: 04/17/24 13:32 Freq: Status: Active Protocol: Activity Type Activity Date Activity User E-sign Co-sign Detail Recorded Client Recorded Date Recorded By Document 04/17/24 13:35 KW dhf 04/17/24 13:47 KW Document 04/24/24 13:39 KW xfh 04/24/24 13:47 KW 04/17/24 04/24/24 13:35 13:39 Wound Center Nurse 1 #1- R MATTHEWS SUPERIOR -Current Size (cm) - Length 1 1.2 -Current Size (cm) - Width 0.6 0.5 -Current Size (cm) - Depth 0.1 0.1 -Total Square Cm 0.6 0.60 -Date of Last Picture (Recall this 04/17/24 field) -Exudate Amt Small Small -Exudate Type Serosanguineous Serosanguineous -Wound Margin Distinct, Distinct, Outline Outline Attached Attached -Granulation Amt Large (67-100%) Large (67-100%) -Granulation Quality Red Red -Texture (Sandy-wound Skin Appearance) Assessed Assessed -Moisture (Sandy-wound Skin Appearance) Assessed Assessed -Color (Sandy-wound Skin Appearance) Assessed, Assessed Erythema -Temperature (Sandy-wound Skin No Abnormality No Abnormality Appearance) (Pt Warm) (Pt Warm) -Tenderness on Palpation (Sandy-wound No No Skin Appearance) -Ulcer Cleansing Soap and Water Soap and Water -Foul Odor after Cleansing No No -Anesthetic Used 5% Lidocaine 5% Lidocaine Gel Gel Right Calf (cm) 48.6 49.5 Right Ankle (cm) 29 28.2 Left Calf (cm) 45 45 Left Ankle (cm) 26 26 WC - Nurse 2 - General Ulcer CM Notes Start: 04/17/24 13:32 Freq: Status: Active Protocol: Activity Type Activity Date Activity User E-sign Co-sign Detail Recorded Client Recorded Date Recorded By Document 04/17/24 14:32 [facility] [id number] 04/17/24 14:35 [facility] Document 04/24/24 14:12 [facility] 04/24/24 14:18 04/17/24 04/24/24 14:32 14:12 Wound Center Nurse 2 #1- R MATTHEWS SUPERIOR -Time 14:32 14:12 -Correct Patient Yes Yes -Correct Side, Site, Position Yes Yes -Correct Procedure Yes -Procedure Performed Yes -Type of Procedure Debridement -Clinical Debridement Subcutaneous -Tissue Removed Subcutaneous -Post Debridement (cm) - Length 0.4 -Post Debridement (cm) - Width 0.3 -Post Debridement (cm) - Depth 0.1 -Total Square (Post) (cm) 0.12 -Area of Debridement (cm) - Length 0.4 -Area of Debridement (cm) - Width 0.3 -Total Square (Area) (cm) 0.12 -Tunneling No -Undermining/Tunneling No -Circular Undermining No -Wound/Ulcer Outcome Not Healed Healed- Epithelialized -Ulcer Cleansing Rinsed/ Irrigated with Saline -Foul Odor after Cleansing No -Bioengineered Tissue No -Bleeding Controlled with Pressure -Treatment Response Procedure Tolerated Well -Debridement - Subq, 1st 20sq cm Yes Pain Scale: 0-10 Numeric Is Patient Pain Free? Yes Yes - Nurse 3 - General Ulcer D/C NN Start: 04/17/24 13:32 Freq: Status: Active Protocol: Activity Type Activity Date Activity User E-sign Co-sign Detail Recorded Client Recorded Date Recorded By Document 04/17/24 14:51 04/17/24 14:52 Document 04/24/24 14:18 [facility] 04/24/24 14:18 04/17/24 04/24/24 14:51 14:18 Wound Care Center Nurse 3 #1- R MATTHEWS SUPERIOR -Ulcer Cleansing Rinsed/ Not Cleansed Irrigated with Saline -Primary Dressing Applied Silvercel Mepilex Border -Primary Dressing Covered/Secured with Dry Gauze & Roll Gauze -Mepilex Border 1 -Silvercel 1 laura le -Lotion applied to leg before Yes compression wrap -Multi-Layered Wrap Application Multi-Layer Comp - Bilat ($ ) Treatment Response Procedure Tolerated Well Pain Scale: 0-10 Numeric Is Patient Pain Free? Yes Yes WC - Visit Discharge Discharge Condition Stable Stable Ambulatory Status Ambulatory Ambulatory Transportation Private Auto Private Auto Clinical Summary of Care Provided Yes Yes Assessment/Plan Assessment/Plan (1) Ulcer of right matthews with fat layer exposed: CODE(S): L97.812 - Non-pressure chronic ulcer of other part of right lower leg with fat layer exposed PLAN: Skin ulcer of right pretibial region with fat layer exposed (2) Lymphedema: CODE(S): I89.0 - Lymphedema, not elsewhere classified PLAN: Plan His remaining R matthews wound is epithelialized today. I advise he continue to keep this area covered for 7-10 days to protect the delicate new skin. I advise him to continue to use Tubigrips for compression or try the Circaids if possible. Will plan for a follow-up appt in 2-3 weeks for a wound check and he should bring his Circaids with him as well at that time.
== END 2024-05-17 23:59 | disposition home or self-care (01) ==
LOC: WC 14:30
PROVIDERS: PCP Nurse Practitioner Primary Care; Referring Provider Nurse Practitioner Primary Care; Visit Provider Physician Assistant
DX: E11.622 Type 2 diabetes mellitus with other skin ulcer (principal); L97.812 Non-pressure chronic ulcer of other part of right lower leg with fat layer exposed; I10 Essential (primary) hypertension; I89.0 Lymphedema, not elsewhere classified
CPT/HCPCS: 11042; 29581; 99213; G0463